=== PATIENT | female | born 1980 | race Caucasian/White ===

== ENCOUNTER 2019-11-01 05:30 | Day surgery (SDC) ==
[2019-10-26 09:48] LABS: Basophils % 0.5 % (0.0-0.8); Eosinophils # 0.2 10*3/uL (0.0-0.87); Eosinophils % 2.2 % (0.00-10.9); Hematocrit 42.1 VOL% (35.7-47.0); Immature Granulocytes % 0.1 %; Immature Granulocytes Absolute 0.01 #; Lymphocytes # 2.3 10*3/uL (1.4-4.0); Lymphocytes % 26.1 % (21.3-54.2); Mean Corpuscular HGB Conc 33.3 GM/DL (32-36); Mean Corpuscular Volume 94.4 FL (87-102); Mean Platelet Volume 9.1 FL (9.6-12.0); Monocytes % 3.8 % (1.7-12.7); Neutrophils % 67.3 % (38.7-73.9); Platelet Count 243 T/CUMM (130-400); Red Blood Count 4.46 MC/CUMM (3.8-5.5); Red Cell Distribution Width 13.3 % (9.3-17.3); White Blood Count 8.7 T/CUMM (4-12)
[2019-10-26 09:58] LABS: Apearance,Urine Slightly Hazy (Clear); Bacteria,Urine Few /HPF (Few); Bilirubin,Urine Negative (Negative); Blood, Urine Small mg/dL (Negative); Glucose,Urine (UA) Negative (Negative); Ketones,Urine Negative (Negative); Mucus,Urine Occasional /LPF (Occasional); Nitrite,Urine Negative (Negative); Protein,Urine Negative; RBC,Urine 3 /HPF (0-4); Squamous Epithelial Cell,Urine Moderate /HPF (0-10); Urine Color Yellow (Yellow); Urine Specific Gravity 1.013 (1.001-1.035); Urine Urobilinogen < 2.0 EU/DL (0.2-1.0); WBC,Urine 7 /HPF (0-6)
[2019-11-01] MEDS ORDERED: cefOXitin 2,000 MG in SYRINGE 1 EACH IV ONE (06:00)
[2019-11-01] MEDS ORDERED: METHYLENE BLUE 10 ML VIAL IV ONE (06:30)
[2019-11-01] MEDS: LACTATED RINGERS 1,000 ML IV SCH ×2 (06:40→10:01)
[2019-11-01] MEDS ORDERED: TISSUE ADHESIVE 1 EACH APPLICATOR TOP ONE (09:22)
[2019-11-01] MEDS ORDERED: BENZOCAINE/MENTHOL LOZENGE 18/BOX PO PRN (09:55)
[2019-11-01] MEDS ORDERED: ONDANSETRON 4 MG/2 ML VIAL IV PRN ×2 (09:55→10:10)
[2019-11-01] MEDS ORDERED: BISACODYL 10 MG SUPP RECTAL PRN (09:55)
[2019-11-01] MEDS ORDERED: MAGNESIUM HYDROXIDE SUSP 30 ML UDCUP PO PRN (09:55)
[2019-11-01] MEDS ORDERED: ACETAMINOPHEN 325 MG TABLET PO PRN ×2 (09:55→20:33)
[2019-11-01] MEDS ORDERED: IBUPROFEN 800 MG TABLET PO PRN (09:55)
[2019-11-01] MEDS ORDERED: oxyCODONE/ACETAMINOPHEN 5-325 MG TABLET PO PRN (09:59)
[2019-11-01] MEDS ORDERED: LACTATED RINGERS 1,000 ML IV SCH (10:00)
[2019-11-01] MEDS: HYDROmorphone 2 MG/1 ML VIAL IV PRN ×2 (10:00→10:25)
[2019-11-01] MEDS ORDERED: propofoL 200 MG/20 ML VIAL IV ONE (10:01)
[2019-11-01] MEDS ORDERED: fentaNYL 250 MCG/5 ML VIAL ONE (10:02)
[2019-11-01] MEDS ORDERED: HYDROmorphone 2 MG/1 ML VIAL ONE ×2 (10:02→10:17)
[2019-11-01] MEDS ORDERED: LIDOCAINE 2% 5 ML VIAL ONE (10:02)
[2019-11-01] MEDS ORDERED: SEVOFLURANE 1 UNIT/15 MINUTE INH ONE (10:02)
[2019-11-01] MEDS ORDERED: MIDAZOLAM 2 MG/2 ML VIAL ONE (10:02)
[2019-11-01] MEDS ORDERED: fentaNYL 100 MCG/2 ML VIAL ONE (10:02)
[2019-11-01] MEDS ORDERED: ROCURONIUM 100 MG/10 ML VIAL IV ONE (10:03)
[2019-11-01] MEDS ORDERED: ONDANSETRON 4 MG/2 ML VIAL ONE (10:17)
[2019-11-01] MEDS ORDERED: KETOROLAC 30 MG/1 ML VIAL IV ONE (10:28)
[2019-11-01] MEDS ORDERED: KETOROLAC 30 MG/1 ML VIAL ONE (10:28)
[2019-11-01] MEDS ORDERED: ROPIVACAINE 0.5% 30 ML VIAL ONE (10:32)
[2019-11-01] MEDS ORDERED: LIDOCAINE 1% 5 ML VIAL ONE (10:32)
[2019-11-01] MEDS ORDERED: DEXAMETHASONE 4 MG/1 ML VIAL ONE (10:33)
[2019-11-01 10:36] LABS: Apearance,Urine CLEAR (Clear); Bilirubin,Urine Negative (Negative); Blood, Urine Negative (Negative); Glucose,Urine (UA) Negative (Negative); Ketones,Urine Negative (Negative); Nitrite,Urine Negative (Negative); Protein,Urine Negative; RBC,Urine <1 /HPF (0-4); Urine Color Straw (Yellow); Urine Specific Gravity 1.005 (1.001-1.035); Urine Urobilinogen < 2.0 EU/DL (0.2-1.0); WBC,Urine <1 /HPF (0-6)
[2019-11-01] MEDS ORDERED: ACETAMINOPHEN 1,000 MG/100 ML VIAL IV ONE (10:46)
[2019-11-01] MEDS ORDERED: ACETAMINOPHEN INJ 1,000 MG in PREMIX 1 EACH IV ONE (10:47)
[2019-11-01] MEDS ORDERED: HYDROmorphone 2 MG/1 ML VIAL IV ONE (13:29)
[2019-11-01] MEDS ORDERED: PROMETHAZINE 25 MG/1 ML VIAL IM PRN (14:10)
[2019-11-01] MEDS: ceFAZolin 1,000 MG in SYRINGE 1 EACH IV SCH ×2 (15:49→23:51)
[2019-11-01] MEDS: KETOROLAC 30 MG/1 ML VIAL IV SCH ×3 (16:16→21:46)
[2019-11-01] MEDS ORDERED: SIMETHICONE CHEW 80 MG TABLET PO PRN (18:31)
[2019-11-01] MEDS: oxyCODONE/ACETAMINOPHEN 5-325 MG TABLET PO PRN (18:55)
[2019-11-01] MEDS ORDERED: MEPERIDINE 25 MG/1 ML VIAL IV PRN (19:05)
[2019-11-01] MEDS ORDERED: ZALEPLON 5 MG CAPSULE PO PRN (19:08)
[2019-11-01] MEDS: DOCUSATE SODIUM 100 MG CAPSULE PO PRN (20:44)
[2019-11-01] MEDS ORDERED: LORazepam 1 MG TABLET PO PRN (22:08)
[2019-11-01] MEDS ORDERED: amLODIPine 10 MG TABLET PO SCH (22:09)
[2019-11-01] MEDS ORDERED: HYDROmorphone 2 MG/1 ML VIAL IV PRN (22:10)
[2019-11-01] MEDS ORDERED: GABAPENTIN 100 MG CAPSULE PO SCH (22:25)
[2019-11-02] MEDS: KETOROLAC 30 MG/1 ML VIAL IV SCH (03:43)
[2019-11-02] MEDS: SIMETHICONE CHEW 80 MG TABLET PO PRN ×2 (03:52→09:30)
[2019-11-02 05:46] LABS: Basophils % 0.2 % (0.0-0.8); Eosinophils % 0.3 % (0.00-10.9); Hematocrit 38.2 VOL% (35.7-47.0); Hemoglobin 13.3 GM/DL (12.0-16.0); Immature Granulocytes % 0.3 %; Immature Granulocytes Absolute 0.04 #; Lymphocytes # 2.3 10*3/uL (1.4-4.0); Lymphocytes % 18.9 % (21.3-54.2); Mean Corpuscular HGB Conc 34.8 GM/DL (32-36); Mean Corpuscular Volume 90.7 FL (87-102); Mean Platelet Volume 10.2 FL (9.6-12.0); Neutrophils % 74.3 % (38.7-73.9); Platelet Count 215 T/CUMM (130-400); Red Blood Count 4.21 MC/CUMM (3.8-5.5); Red Cell Distribution Width 12.9 % (9.3-17.3)
[2019-11-02] MEDS: oxyCODONE/ACETAMINOPHEN 5-325 MG TABLET PO PRN (06:13)
[2019-11-02 08:23] VITALS: BP 160/90
[2019-11-02] MEDS: DOCUSATE SODIUM 100 MG CAPSULE PO PRN (09:30)
== END 2019-11-02 11:00 | disposition home or self-care (01) ==
LOC: N.OB 05:30 → N.OR 05:30 → N.SDSINP 05:30 → N.OB 11:28 → N.OR 11-02 11:00
PROVIDERS: ATTEND Obstetrics & Gynecology